=== PATIENT | male | born 1990 | race African-American/Black ===

== ENCOUNTER 2018-01-16 15:14 | Emergency (ER) | payer SELFPAY ==
[~2018-01-16] VITALS: Ht 175.3 cm; Wt 90.7 kg
[2018-01-16 16:18] VITALS: BP 125/77
== END 2018-01-16 17:22 | disposition left against medical advice (07) ==
LOC: ER 15:23
DX: J02.9 Acute pharyngitis, unspecified (principal); Z53.29 Procedure and treatment not carried out because of patient's decision for other reasons